=== PATIENT | female | born 1955 | race Native Hawaiian/Other Pacific Islander ===

== ENCOUNTER 2021-10-30 20:47 | Emergency (ER) | payer OTHER ==
[~2021-10-30] VITALS: Ht 170.2 cm; Wt 72.6 kg
[2021-10-31 00:23] LABS: POTASSIUM 3.7 mmol/L (3.6-5.2)
[2021-10-31 00:26] LABS: PLATELET COUNT 117 K/uL (152-353)
[2021-10-31 01:10] VITALS: BP 118/70; TEMP 98.9
== END 2021-10-31 01:15 | disposition home or self-care (01) ==
LOC: ED 20:47
PROVIDERS: Emergency Medicine
DX: J44.1 Chronic obstructive pulmonary disease with (acute) exacerbation (principal); U07.1 COVID-19; F17.210 Nicotine dependence, cigarettes, uncomplicated
CPT/HCPCS: 36415; 80053; 85027; 87635; 94664; 96372; 99283; U0003

== ENCOUNTER 2023-05-02 11:46 | Outpatient (CLI) | payer OTHER | END 2023-05-02 19:30 | disposition home or self-care (01) | LOC: US 11:46 | PROVIDERS: ATTEND Specialist | DX: I72.9 Aneurysm of unspecified site (principal) ==